=== PATIENT | female | born 1985 | race Caucasian/White ===

== ENCOUNTER 2023-06-23 14:52 | Emergency (ER) | payer BC ==
[~2023-06-23] VITALS: Ht 172.7 cm; Wt 81.6 kg
[2023-06-23] MEDS ORDERED: LEXAPRO20 MG PO (15:04)
== END 2023-06-23 19:32 | disposition home or self-care (01) ==
LOC: ER 14:53
DX: J03.90 Acute tonsillitis, unspecified (principal); Z20.822 Contact with and (suspected) exposure to COVID-19